=== PATIENT | male | born 1950 | race Caucasian/White ===

== ENCOUNTER 2022-12-01 08:41 | Day surgery (SDC) | payer MEDICARE, SELFPAY ==
--- NOTE | 2022-11-30 09:37 | P.CONAN_ITS ---
Documented by User: Diane Monson NP 11/30/22 09:39 HPI - Anesthesia Eval Consult details Narrative: 72yo M for Colonoscopy [facility] Past Medical History Medical History COPD (chronic obstructive pulmonary disease) Crohn's disease HLD (hyperlipidemia) HTN (hypertension) Renal stones Sleep apnea Surgical History Surgical History H/O hemorrhoidectomy History of rectal surgery Hx of colonoscopy Social History Social History Patient Tobacco Use Status: Former Tobacco user Quit Date: 2018 Meds Allergies Allergy/AdvReac Type Severity Reaction Status Date / Time No Known Allergies Allergy Unverified 11/28/22 13:27 Home Medications Medication Instructions Recorded Confirmed Last Taken Type amlodipine 5 mg tablet 5 mg PO DAILY 11/30/22 11/30/22 Unknown History aspirin 81 mg tablet 81 mg PO DAILY 11/30/22 11/30/22 Unknown History atorvastatin 20 mg tablet 20 mg PO DAILY 11/30/22 11/30/22 Unknown History losartan 25 mg tablet 25 mg PO DAILY 11/30/22 11/30/22 Unknown History Exam Exam Date and Time: November 30, [id number] Assessment and Plan Assessment Anesthesia Assessment: Chart Reviewed Documented by User: Lakesha Rivera MD 12/01/22 09:47 [facility] Past Medical History Medical History COPD (chronic obstructive pulmonary disease) Crohn's disease HLD (hyperlipidemia) HTN (hypertension) Renal stones Sleep apnea Surgical History Surgical History H/O hemorrhoidectomy History of rectal surgery Hx of colonoscopy History of Problems with Anesthesia: No Social History Social History Patient Tobacco Use Status: Former Tobacco user Quit Date: 2018 Meds Allergies Allergy/AdvReac Type Severity Reaction Status Date / Time No Known Allergies Allergy Unverified 11/28/22 13:27 Home Medications Medication Instructions Recorded Confirmed Last Taken Type amlodipine 5 mg tablet 5 mg PO DAILY 11/30/22 11/30/22 Unknown History aspirin 81 mg tablet 81 mg PO DAILY 11/30/22 11/30/22 Unknown History atorvastatin 20 mg tablet 20 mg PO DAILY 11/30/22 11/30/22 Unknown History losartan 25 mg tablet 25 mg PO DAILY 11/30/22 11/30/22 Unknown History Exam Airway Mallampati Class: III TM Dist: >3cm Neck ROM: Full Loose/Missing/Broken Teeth: No Heart: RRR Lungs: CTA Assessment and Plan Assessment Anesthesia Assessment: Anesthesia Plan Discussed Final Anesthetic Review History of Problems with Anesthesia: No NPO: Yes ASA Class: III Final Preanesthetic Review: Meds/Allgs Chart Reviewed, Consent Obtained/Reviewed and Anes Risks/Benef Reviewed Patient Risk: Intermediate Procedure Risk: Low Anesthetic Plan Anesthetic Plan: MAC: Disposition: Standard PACU
[2022-12-01 08:56] VITALS: BP 144/67; PULSE 54; RESP 18; TEMP 36; O2SAT 96; BMI 32.4
[2022-12-01] MEDS: Lactated Ringers 1,000 ML 100 ML IVCONT (09:16)
[2022-12-01 10:25] VITALS: BP 101/49; PULSE 49; RESP 16; TEMP 36.1; O2SAT 97
--- NOTE | 2022-12-01 10:29 | P.BOP_ITS ---
Brief Operative Note Date of Service: 12/01/22 Pre-op diagnosis: Crohn's colitis, Screening Post-op diagnosis: other (Same, Pseudopolyps) Procedure: Colonoscopy to the cecum with biopsies Surgeon: Luis M Blanco Anesthesia: MAC Was an Section Supervisor used for this Procedure?: No Estimated blood loss (mL): 2.0 Pathology: other (A. Ascending colon B. Transverse colon C. Descending colon D. Sigmoid colon E. Rectum) Condition: stable Disposition: PACU
[2022-12-01 10:30] VITALS: BP 110/50; PULSE 45; RESP 16; O2SAT 99
--- NOTE | 2022-12-01 10:42 | OP_ITS ---
DATE OF SERVICE: 12/01/2022 SURGEON: Luis M Blanco MD INDICATIONS: The patient presents for evaluation of colorectal cancer screening and history of Crohn's colitis. Full consent obtained from him for this, including risks of bleeding and perforation. PREOPERATIVE DIAGNOSIS: POSTOPERATIVE DIAGNOSIS: PROCEDURE PERFORMED: Colonoscopy to the cecum with multiple biopsies. ESTIMATED BLOOD LOSS: COMPLICATIONS: ANESTHESIA: Monitored anesthesia care. ASSISTANTS: SPECIMENS: PREOPERATIVE DIAGNOSES: Colorectal cancer screening and history of Crohn's colitis. POSTOPERATIVE DIAGNOSES: Colorectal cancer screening and history of Crohn's colitis. Rule out dysplasia, pseudopolyps, sigmoid diverticulosis, and internal hemorrhoids. DESCRIPTION OF PROCEDURE: The patient was placed in left lateral decubitus position. The digital rectal exam revealed no abnormalities. The Olympus video pediatric colonoscope was entered into the rectum and advanced easily to the cecum. Once in the cecum, I did identify a normal-appearing cecal pouch with appendiceal orifice and a normal-appearing ileocecal valve. There was transillumination of light deep in the right lower quadrant. The entire cecum and ileocecal valve appeared normal. The scope was slowly withdrawn assessing all mucosal surfaces carefully. Preparation was excellent. I did not visualize any sign of active colitis, nor angiodysplasia. There was some scarring in various locations in the colon. There were also pseudopolyps in various areas of the colon as well. I did obtain random biopsies in the ascending colon, transverse colon, descending colon, sigmoid colon and rectum. I did not visualize any significant polyps or any suspicious lesions. There was a mild amount of sigmoid diverticulosis. In the rectum, scope was retroflexed visualizing internal hemorrhoids, but no other pathology. The rectal mucosa appeared normal. The scope was straightened and withdrawn from the patient. He tolerated the procedure well and was returned to recovery area in stable condition. IMPRESSION: 1. History of Crohn's colitis, rule out dysplasia. 2. Pseudopolyps. 3. Diverticulosis. 4. Internal hemorrhoids. PLAN: The results of the pathology will be checked. Assuming there is no dysplasia, I would recommend a repeat colonoscopy in 5 years for further screening and surveillance. He was advised not to use any aspirin and NSAIDs for 1 week. He will otherwise see me on a p.r.n. basis. MD SATHYA Dickey/CHRISTELLE / [id number]
[2022-12-01 10:45] VITALS: BP 122/52; PULSE 48; RESP 0; TEMP 36.6; O2SAT 97
== END 2022-12-01 11:41 | disposition home or self-care (01) ==
PROVIDERS: PCP Internal Medicine; Visit Provider Internal Medicine
PROC: 0DJD8ZZ Inspection of Lower Intestinal Tract, Via Natural or Artificial Opening Endoscopic (ICD-10-PCS; CPT 45378; principal; 2022-12-01 09:30)
DX: Z12.11 Encounter for screening for malignant neoplasm of colon (principal); K50.10 Crohn's disease of large intestine without complications; K51.40 Inflammatory polyps of colon without complications; K57.30 Diverticulosis of large intestine without perforation or abscess without bleeding; K64.8 Other hemorrhoids; I10 Essential (primary) hypertension; E78.5 Hyperlipidemia, unspecified; J44.9 Chronic obstructive pulmonary disease, unspecified; Z87.891 Personal history of nicotine dependence; Z79.82 Long term (current) use of aspirin; Z79.899 Other long term (current) drug therapy
CPT/HCPCS: 45380; 88305